=== PATIENT | male | born 1965 | race Caucasian/White ===

== ENCOUNTER 2020-07-24 05:10 | Emergency (ER) | payer SELFPAY ==
[2020-07-24] MEDS ORDERED: NA CHLORIDE 0.9% 1,000 ML ONE (05:38)
[2020-07-24] MEDS ORDERED: PROMETHAZINE INJ 25 MG/ML AMP ONE (05:38)
[2020-07-24 05:47] LABS: Absolute Lymphocytes (CBC) 1.9 K/uL (0.7-4.9); Basophils % 0.7 % (0-1.3); Hematocrit 37.1 % (39.6-49.0); Lymphocytes % 31.4 % (15.3-44.8); MPV 8.7 fL (7.6-11.3); RBC Red Blood Cell Count 4.14 M/uL (4.33-5.43)
[2020-07-24 06:01] LABS: Protime INR 0.93
[2020-07-24 06:23] LABS: ALT/SGPT 52 U/L (12-78); AST/SGOT 44 U/L (15-37); Albumin 3.6 g/dL (3.4-5.0); Alkaline Phosphatase 50 U/L (45-117); BUN Blood Urea Nitrogen 12 mg/dL (7-18); Bicarbonate 23 mmol/L (21-32); Bilirubin Direct < 0.1 mg/dL (0-0.2); Bilirubin Total 0.2 mg/dL (0.2-1.0); Glucose Level 108 mg/dL (74-106); Magnesium 2.2 mg/dL (1.8-2.4); NT PRO-BNP 38 pg/mL (<125); Potassium 3.1 mmol/L (3.5-5.1); Protein, Total 6.5 g/dL (6.4-8.2); Sodium Level 142 mmol/L (136-145); Troponin (Emerg Dept Use Only) < 0.02 ng/mL (0.0-0.045)
[2020-07-24] MEDS ORDERED: POTASSIUM 25 MEQ EFFERV TAB ONE (07:31)
[2020-07-24 07:39] LABS: Barbiturates NEGATIVE (NEGATIVE); Benzodiazepines NEGATIVE (NEGATIVE); Cocaine NEGATIVE (NEGATIVE); METHAMPHETAM POSITIVE (NEGATIVE); Methadone NEGATIVE (NEGATIVE); Opiates NEGATIVE (NEGATIVE); Phencyclidine NEGATIVE (NEGATIVE); THC Cannibis NEGATIVE (NEGATIVE)
[2020-07-24 08:08] LABS: Urine Blood NEGATIVE (NEG); Urine Glucose NEGATIVE (NEG); Urine Protein NEGATIVE (NEG); Urine Specific Gravity 1.015 (1.005-1.030)
--- NOTE | 2020-07-24 08:08 | RAD REPORT ---
EXAM DESCRIPTION: CT - Head Brain Wo Cont - 07/24/2020 7:57 am CLINICAL HISTORY: Dizziness COMPARISON: None. TECHNIQUE: Computed axial tomography of the head was obtained. IV contrast was not requested. All CT scans are performed using dose optimization technique as appropriate and may include automated exposure control or mA/KV adjustment according to patient size. FINDINGS: An intracranial bleed is not seen . The ventricles are normal in caliber. No extra-axial fluid collection is noted. Fluid within the sinuses/ mastoids is not seen. IMPRESSION: No acute intracranial abnormality is seen. If patient's symptoms persist MRI of the bra in would be recommended.
--- NOTE | 2020-07-24 08:45 | ER ---
Nurse's Notes [facility] Name: Austen Trevino Age: 55 yrs Sex: Male : 1965 Arrival Date: 07/24/2020 Time: 05:11 Bed 7 Private MD: Diagnosis: Vomiting, unspecified;Dizziness and giddiness;Alcohol use, unspecified with intoxication Presentation: 07/24 05:12 Chief complaint: EMS states: Pt reports around 9 or 10 pm last night he took a blue ea pill his friend gave him, pt thought he was taking viagara, an hour prior to arrival he reports feeling nauseous, reports vomiting about 5 times. Coronavirus screen: At this time, the client does not indicate any symptoms associated with coronavirus-19. Ebola Screen: No symptoms or risks identified at this time. Initial Sepsis Screen: Does the patient meet any 2 criteria? No. Patient's initial sepsis screen is negative. Does the patient have a suspected source of infection? No. Patient's initial sepsis screen is negative. Risk Assessment: Do you want to hurt yourself or someone else? Patient reports no desire to harm self or others. Onset of symptoms was July 24, 2020. 05:12 Method Of Arrival: EMS: [facility] ea 05:12 Acuity: MYNOR 3 ea Triage Assessment: 05:12 General: Appears uncomfortable, Behavior is agitated, restless. Pain: Complains of pain ea in right arm. Neuro: Level of Consciousness is awake, alert, obeys commands, Oriented to person, place, time, situation. Respiratory: Airway is patent Respiratory effort is even, unlabored, Respiratory pattern is regular, symmetrical. GI: Reports nausea, vomiting. Derm: Skin is pink, warm \\T\\ dry. Historical: - Allergies: 05:37 No Known Allergies; ea - Home Meds: 05:37 None [Active]; ea - PMHx: 05:37 chronic shoulder pain; ea - PSHx: 05:37 None; ea - Immunization history:: Adult Immunizations up to date. - Social history:: Smoking status: Patient denies any tobacco usage or history of. Screenin:36 Abuse screen: Denies threats or abuse. Nutritional screening: No deficits noted. ea Tuberculosis screening: No symptoms or risk factors identified. Fall Risk IV access (20 points). Assessment: 05:38 Reassessment: see triage assessment. ea 06:13 Reassessment: Patient and/or family updated on plan of care and expected duration. Pain ea level reassessed. Pt resting with eyes closed, respirations even and unlabored chest expansions even and unlabored. 07:00 Reassessment: RECD REPORT FROM SMITA EDMOND. 55YO WM P/W NAUSEA AND CHRONIC PAIN. UOP bp PENDING. 07:10 Reassessment: PT OOB TO RESTROOM. PT D/C ALL MONITORING AND OWN PIV WITHOUT NOTIFYING bp STAFF. GI: Abdomen is non-distended, Bowel sounds present X 4 quads. 08:00 Reassessment: PT RETURNED FROM CT. PT DECLINING MONITOR AT THIS TIME. bp 09:00 Reassessment: Patient is alert, oriented x 3, equal unlabored respirations, skin aa5 warm/dry/pink. To bedside to d/c pt home. Pt appears upset when I was giving d/c instructions to him and explaining Zofran instructions, pt states "you guys are a joke", asked pt what I could do for him and asked about his concerns with discharge, pt refused to answer, pt states "I will leave I just need a minute please". Vital Signs: 05:12 BP 108 / 68; Pulse 72; Resp 18; Temp 97.6; Pulse Ox 97% on R/A; ea 06:14 BP 124 / 83; Pulse 60; Resp 18; Pulse Ox 100% ; ea 07:00 BP 115 / 75; Pulse 75; Resp 11; Pulse Ox 98% ; bp ED Course: 05:11 Patient arrived in ED. ea 05:12 Patient has correct armband on for positive identification. Placed in gown. Bed in low ea position. Call light in reach. Side rails up X2. groundwater monitoring technician on. Pulse ox on. NIBP on. 05:18 Elias Lemus MD is Attending Physician. [facility] 05:20 Inserted saline lock: 20 gauge in left antecubital area, using aseptic technique. ea 05:21 Smita Johnson, RN is Primary Nurse. ea 05:35 Triage completed. ea 05:37 Arm band placed on right wrist. Patient placed in an exam room, on a stretcher, on ea pulse oximetry. 06:10 XRAY Chest (1 view) In Process Unspecified. EDMS 07:31 Urine Dipstick--Ancillary (enter results) Sent. mh5 07:31 Urine Dipstick-Ancillary Sent. mh5 07:31 Urine Drug Screen Sent. 5 07:31 Urine collected: clean catch specimen, clear. mh5 07:57 CT Head Brain wo Cont In Process Unspecified. EDMS 08:40 Attending Physician role handed off by Elias Lemus MD rn 08:40 Boo Dowell MD is Attending Physician. rn 09:00 No provider procedures requiring assistance completed. aa5 09:00 Pt pulled IV out by himself, no active bleeding noted, catheter intact. aa5 Administered Medications: 05:23 CANCELLED (Other Intervention Used): Zofran (Ondansetron) 4 mg IVP once; over 2 minutes ea 05:30 Drug: Phenergan 12.5 mg Route: IVP; Site: left antecubital; ea 06:12 Follow up: Response: No adverse reaction mg2 05:30 Drug: NS 0.9% 1000 ml Route: IV; Rate: 1 bolus; Site: left antecubital; ea 06:12 Follow up: Response: No adverse reaction; IV Status: Completed infusion; IV Intake: mg2 1000ml 07:20 Drug: Potassium Effervescent Tablet 50 mEq Route: PO; bp Intake: 06:12 IV: 1000ml; Total: 1000ml. mg2 Outcome: 08:44 Discharge ordered by . rn 09:24 Discharged to home ambulatory. aa5 09:24 Condition: stable 09:24 Discharge instructions given to patient, Instructed on discharge instructions, follow up and referral plans. medication usage, Pt refused to take discharge paperwork and prescription for Zofran. 09:25 Patient left the ED. aa5 Signatures: Dispatcher [employer] EDMS Boo Dowell MD MD rn Calderon, Audri, RN RN aa5 Martha Pitts 5 Smita Johnson RN RN ea Peltier, Brian, RN RN bp Gardose, Michele, RN RN mg2 Elias Lemus MD MD 7 Corrections: (The following items were deleted from the chart) 07:27 07:10 Reassessment: PT OOB TO RESTROOM bp bp 09:40 09:00 Reassessment: Patient is alert, oriented x 3, equal unlabored respirations, skin aa5 warm/dry/pink. To bedside to d/c pt home. Pt appears upset when I was giving d/c instructions to him and explaining Zofran instructions, pt states "you guys are a joke", asked pt what I could do anything for him and asked about his concerns with discharge, pt refused to answer, pt states "I will leave I just need a minute please". aa5
--- NOTE | 2020-07-24 08:45 | EDPHYS ---
Physician Documentation [facility] Name: Austen Trevino Age: 55 yrs Sex: Male : 1965 Arrival Date: 07/24/2020 Time: 05:11 Bed 7 Private MD: ED Physician Boo Dowell HPI: 07/24 05:59 This 55 yrs old Male presents to ER via EMS with complaints of Nausea, mh7 Chronic Shoulder Pain. 05:59 The patient presents to the emergency department with nausea, that is moderate, mh7 vomiting, that is intermittent. Onset: The symptoms/episode began/occurred today. Possible causes: Took Viagra that was given by a friend. The symptoms are aggravated by nothing. The symptoms are alleviated by nothing. Associated signs and symptoms: Pertinent positives: nausea, vomiting, Pertinent negatives: abdominal pain, anorexia, belching, constipation, diarrhea, dysuria, fever, flatulence, GI bleeding, hematuria. Severity of symptoms: At their worst the symptoms were moderate today, in the emergency department the symptoms are unchanged. Historical: - Allergies: 05:37 No Known Allergies; ea - Home Meds: 05:37 None [Active]; ea - PMHx: 05:37 chronic shoulder pain; ea - PSHx: 05:37 None; ea - Immunization history:: Adult Immunizations up to date. - Social history:: Smoking status: Patient denies any tobacco usage or history of. ROS: 05:59 Constitutional: Negative for fever, chills, and weight loss, Eyes: Negative for injury, mh7 pain, redness, and discharge, ENT: Negative for injury, pain, and discharge, Neck: Negative for injury, pain, and swelling, Cardiovascular: Negative for chest pain, palpitations, and edema, Respiratory: Negative for shortness of breath, cough, wheezing, and pleuritic chest pain, Back: Negative for injury and pain, : Negative for injury, bleeding, discharge, and swelling, MS/Extremity: Negative for injury and deformity, Skin: Negative for injury, rash, and discoloration, Neuro: Negative for headache, weakness, numbness, tingling, and seizure, Psych: Negative for depression, anxiety, suicide ideation, homicidal ideation, and hallucinations, Allergy/Immunology: Negative for hives, rash, and allergies, Endocrine: Negative for neck swelling, polydipsia, polyuria, polyphagia, and marked weight changes, Hematologic/Lymphatic: Negative for swollen nodes, abnormal bleeding, and unusual bruising. Exam: 05:59 Head/Face: Normocephalic, atraumatic. Eyes: Pupils equal round and reactive to light, mh7 extra-ocular motions intact. Lids and lashes normal. Conjunctiva and sclera are non-icteric and not injected. Cornea within normal limits. Periorbital areas with no swelling, redness, or edema. Neck: Trachea midline, no thyromegaly or masses palpated, and no cervical lymphadenopathy. Supple, full range of motion without nuchal rigidity, or vertebral point tenderness. No Meningismus. Chest/axilla: Normal chest wall appearance and motion. Nontender with no deformity. No lesions are appreciated. Cardiovascular: Regular rate and rhythm with a normal S1 and S2. No gallops, murmurs, or rubs. Normal PMI, no JVD. No pulse deficits. Respiratory: Lungs have equal breath sounds bilaterally, clear to auscultation and percussion. No rales, rhonchi or wheezes noted. No increased work of breathing, no retractions or nasal flaring. Abdomen/GI: Soft, non-tender, with normal bowel sounds. No distension or tympany. No guarding or rebound. No evidence of tenderness throughout. Back: No spinal tenderness. No costovertebral tenderness. Full range of motion. Skin: Warm, dry with normal turgor. Normal color with no rashes, no lesions, and no evidence of cellulitis. MS/ Extremity: Pulses equal, no cyanosis. Neurovascular intact. Full, normal range of motion. Neuro: Awake and alert, GCS 15, oriented to person, place, time, and situation. Cranial nerves II-XII grossly intact. Motor strength 5/5 in all extremities. Sensory grossly intact. Cerebellar exam normal. Normal gait. Psych: Awake, alert, with orientation to person, place and time. Behavior, mood, and affect are within normal limits. 05:59 Constitutional: The patient appears in no acute distress, alert, awake, uncomfortable. Vital Signs: 05:12 BP 108 / 68; Pulse 72; Resp 18; Temp 97.6; Pulse Ox 97% on R/A; ea 06:14 BP 124 / 83; Pulse 60; Resp 18; Pulse Ox 100% ; ea 07:00 BP 115 / 75; Pulse 75; Resp 11; Pulse Ox 98% ; bp MDM: 05:34 Patient medically screened. 7 08:41 Differential diagnosis: viral gastroenteritis, gastroenteritis, ETOH intoxication, drug rn use. Data reviewed: vital signs, nurses notes, lab test result(s), EKG, radiologic studies, CT scan, and as a result, I will discharge patient. Counseling: I had a detailed discussion with the patient and/or guardian regarding: the historical points, exam findings, and any diagnostic results supporting the discharge/admit diagnosis, lab results, radiology results, the need for outpatient follow up, to return to the emergency department if symptoms worsen or persist or if there are any questions or concerns that arise at home. Response to treatment: the patient's symptoms have markedly improved after treatment, and as a result, I will discharge patient. ED course: Signed out to me by Dr. Lemus pending ct head, plan per Dr. Lemus is to DC if normal. Patient pulle dout his own IV. Stable vitals. No acute complaints. Sober. Will dc home. Meth +.. 07/24 05:22 Order name: Acetaminophen; Complete Time: 06:28 07/24 05:22 Order name: Basic Metabolic Panel; Complete Time: 06:28 07/24 05:22 Order name: CBC with Diff; Complete Time: 06:28 07/24 05:22 Order name: ETOH Level; Complete Time: 06:28 07/24 05:22 Order name: Hepatic Function; Complete Time: 06:28 07/24 05:22 Order name: PT-INR; Complete Time: 06:28 07/24 05:22 Order name: Ptt, Activated; Complete Time: 06:28 07/24 05:22 Order name: Salicylate; Complete Time: 06:28 07/24 05:22 Order name: Urine Drug Screen; Complete Time: 08:41 07/24 05:22 Order name: Magnesium; Complete Time: 06:28 07/24 05:22 Order name: NT PRO-BNP; Complete Time: 06:28 07/24 05:22 Order name: Troponin (emerg Dept Use Only); Complete Time: 06:28 07/24 07:28 Order name: Urine Dipstick--Ancillary (enter results) 07/24 07:29 Order name: Urine Dipstick-Ancillary; Complete Time: 08:41 EDMS 07/24 05:22 Order name: EKG; Complete Time: 05:23 07/24 05:22 Order name: EKG - Nurse/Tech; Complete Time: 05:32 07/24 05:22 Order name: IV Saline Lock; Complete Time: 05:32 07/24 05:22 Order name: Labs collected and sent; Complete Time: 05:32 07/24 05:22 Order name: Urine Dipstick-Ancillary (obtain specimen); Complete Time: 05:32 07/24 05:22 Order name: XRAY Chest (1 view); Complete Time: 09:21 07/24 05:22 Order name: Cardiac monitoring; Complete Time: 05:32 07/24 05:22 Order name: O2 Sat Monitoring; Complete Time: 05:32 07/24 07:15 Order name: CT Head Brain wo Cont; Complete Time: 08:41 mh7 Administered Medications: 05:23 CANCELLED (Other Intervention Used): Zofran (Ondansetron) 4 mg IVP once; over 2 minutes ea 05:30 Drug: Phenergan 12.5 mg Route: IVP; Site: left antecubital; ea 06:12 Follow up: Response: No adverse reaction mg2 05:30 Drug: NS 0.9% 1000 ml Route: IV; Rate: 1 bolus; Site: left antecubital; ea 06:12 Follow up: Response: No adverse reaction; IV Status: Completed infusion; IV Intake: mg2 1000ml 07:20 Drug: Potassium Effervescent Tablet 50 mEq Route: PO; bp Disposition: 07/24/20 08:44 Discharged to Home. Impression: Vomiting, unspecified, Dizziness and giddiness, Alcohol use, unspecified with intoxication. - Condition is Stable. - Discharge Instructions: Alcohol Intoxication, Dizziness, Nausea and Vomiting, Adult. - Prescriptions for Zofran ODT 4 mg Oral tablet,disintegrating - place 1 tablet by TRANSLINGUAL route every 8 hours As needed; 20 tablet. - Medication Reconciliation Form, Thank You Letter, Antibiotic Education, Prescription Opioid Use form. - Follow up: Private Physician; When: As needed; Reason: Recheck today's complaints, Re-evaluation by your physician. - Problem is new. - Symptoms have improved. Signatures: Dispatcher [employer] EDBoo Razo MD MD rn Calderon, Audri, RN RN aa5 Smita Johnson RN RN ea Peltier, Brian, RN RN bp Holmes, Maurice, MD MD 7 Kalin Chang RN mg2 Corrections: (The following items were deleted from the chart) 05:23 05:23 Zofran (Ondansetron) 4 mg IVP once; over 2 minutes ordered. conor perdomo 09:25 08:44 07/24/2020 08:44 Discharged to Home. Impression: Vomiting, unspecified; Dizziness aa5 and giddiness; Alcohol use, unspecified with intoxication. Condition is Stable. Forms are Medication Reconciliation Form, Thank You Letter, Antibiotic Education, Prescription Opioid Use. Follow up: Private Physician; When: As needed; Reason: Recheck today's complaints, Re-evaluation by your physician. Problem is new. Symptoms have improved. rn
--- NOTE | 2020-07-24 09:12 | RAD REPORT ---
EXAM DESCRIPTION: [place] Single View07/24/2020 6:11 am CLINICAL HISTORY: Chest pain COMPARISON: none FINDINGS: The lungs appear clear of acute infiltrate. The heart is normal size IMPRESSION: No acute abnormalities displayed
[2020-07-24 09:57] VITALS: TEMP 97.6
[2020-07-24 10:00] VITALS: BP 115/75; O2SAT 98
== END 2020-07-24 09:25 | disposition home or self-care (01) ==
LOC: ER 05:10
DX: R11.10 Vomiting, unspecified (principal); R42 Dizziness and giddiness; F10.129 Alcohol abuse with intoxication, unspecified
CPT/HCPCS: 36415; 70450; 71045; 80048; 80076; 80307; 80320; 80329; 81003; 83735; 83880; 84484; 85025; 85610; 85730; 93005; 96361; 96374; 99284; J2550; J7030